=== PATIENT | female | born 1985 | race Caucasian/White ===

== ENCOUNTER 2016-10-22 07:53 | Emergency (ER) | payer OTHER ==
[~2016-10-22] VITALS: Ht 157.5 cm; Wt 146.5 kg
[~2016-10-22 07:53] MED LIST: PROP20TA3 PO
[2016-10-22 07:55] VITALS: BP 157/94; PULSE 108; RESP 20; TEMP 98.2; O2SAT 96
[2016-10-22 09:17] LABS: AUTOMATED NEUTROPHIL # 5.8 TH/MM3 (1.8-7.7); BASOPHIL % 0.2 % (0.0-2.0); EOSINOPHIL # 0.1 TH/MM3 (0-0.4); EOSINOPHIL % 0.8 % (0.0-4.0); HEMATOCRIT 41.6 % (35.0-46.0); HEMO FLAGS DIFF FINAL; LYMPH % 26.2 % (9.0-44.0); LYMPHOCYTE # 2.4 TH/MM3 (1.0-4.8); MEAN CELL VOLUME 84.7 FL (80.0-100.0); MEAN CORPUSCULAR HEMOGLOBIN 29.7 PG (27.0-34.0); MEAN CORPUSCULAR HGB CONC 35.1 % (32.0-36.0); MONO % 8.7 % (0.0-8.0); NEUT % 64.1 % (16.0-70.0); PLATELET COUNT 257 TH/MM3 (150-450); RED BLOOD COUNT 4.91 MIL/MM3 (4.00-5.30)
[2016-10-22 10:01] VITALS: RESP 16; O2SAT 97
[2016-10-22] MEDS ORDERED: PROP20TA3 PO (10:05)
[2016-10-22] MEDS ORDERED: SODIUM CHLOR 0.9% 1000 ML INJ 1,000 ML IV ONE (10:22)
[2016-10-22] MEDS ORDERED: MORPHINE SULFATE 4 MG/ML INJ IV PUSH ONE (10:30)
[2016-10-22 10:50] LABS: BACTERIA, URINE OCC /hpf; BLOOD, URINE NEG (NEG); GLUCOSE,URINE NEG (NEG); KETONE, URINE NEG (NEG); NITRITE,URINE NEG (NEG); PH, URINE 5.5 (5.0-8.5); SQUAMOUS EPITHELIAL CELL URINE 1 /hpf (0-5); URINE COLOR LIGHT-YELLOW (YELLW/STRAW)
[2016-10-22 10:51] LABS: COMMENT (UR) CULT NOT INDICATED; CULTURE IF INDICATED CULT NOT INDICATED
[2016-10-22] MEDS ORDERED: oxyCODONE/ACETAMINOPHEN 5 MG/325 MG TAB PO ONE (11:00)
[2016-10-22 11:32] LABS: BICARBONATE 26.8 MEQ/L (21.0-32.0); POTASSIUM 4.4 MEQ/L (3.5-5.1)
--- NOTE | 2016-10-22 12:07 | RADRPT ---
EXAM DATE/TIME: 10/22/2016 10:55 [place] COMPARISON: No previous studies available for comparison. INDICATIONS : Pelvic pain. MEDICAL HISTORY : Pelvic pain. Mitral valve prolapse. Ovarian cysts. SURGICAL HISTORY : Tonsillectomy. ENCOUNTER: Initial ACUITY: 2 days PAIN SCORE: 4/10 LOCATION: Right pelvis MEASUREMENTS: UTERUS: 8.0 x 2.4 x 4.4 cm RIGHT OVARY: 3.1 x 2.5 x 4.2 cm ENDOMETRIAL STRIPE: 9 mm LEFT OVARY: Not visualized. FINDINGS: UTERUS: The myometrium has homogeneous echotexture without mass. RIGHT OVARY: A simple cyst is seen involving the right ovary. This measures 5.5 x 4.1 x 3.8 cm. No hyperemia. No s eptations or internal echoes. No yolk sac or pole. LEFT OVARY: The ovary is not visualized. No adnexal mass or fluid collection is seen. MISCELLANEOUS: No free fluid. CONCLUSION: 1. Lack of visualization of the left ovary. 2. 5.5 cm simple cyst involving the right ovary. Vance Paredes Jr., MD on October 22, 2016 at 12:02 Board Certified Radiologist. This report was verified electronically.
[2016-10-22 12:30] VITALS: RESP 16
[2016-10-22] MEDS ORDERED: IBUPROFEN 600 MG TAB PO ONE (15:00)
[2016-10-22] MEDS ORDERED: IBUP-232 PO (15:14)
--- NOTE | 2016-10-22 15:14 | PD ---
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 Patient reports that she was has pain to her lower abdomen when she is ovulating, reports that the pain usually lasts for a few hours and resolves on its own. Patient reports that she has had increased pain to her right lower quadrant since yesterday morning, reports pain is been constant and unrelenting. Patient reports history of ovarian cysts in the past. Patient reports that she has been feeling nauseous and did have an episode of emesis. Patient with no fevers or chills. Patient denies constipation or diarrhea with last bowel movement this morning. Patient denies any vaginal bleeding or discharge. PFSH Past Medical History Heart Rhythm Problems: Yes (SINUS TACH) Cardiovascular Problems: Yes (MVP) ?: Not LMP: 10/04/2016 Ovarian Cysts: Yes Past Surgical History Tonsillectomy: Yes (T&A) Social History Alcohol Use: No Tobacco Use: No Substance Use: No Allergies-Medications (Allergen,Severity, Reaction): Coded Allergies: No Known Allergies (Unverified , 10/22/16) Reported Meds & Prescriptions Reported Meds & Active Scripts Active Ibuprofen 600 Mg Tab 600 Mg PO Q6H PRN Reported Propranolol (Propranolol HCl) 20 Mg Tab 20 Mg PO TID Review of Systems General / Constitutional: No: Fever Eyes: No: Visual changes HENT: No: Headaches Cardiovascular: No: Chest Pain or Discomfort Respiratory: No: Shortness of Breath Gastrointestinal: Positive: Nausea, Vomiting, Abdominal Pain Genitourinary: Positive: Pelvic Pain, No: Urgency, Frequency, Dysuria, Hesitancy, Flank Pain, Vaginal Bleeding Musculoskeletal: No: Pain Skin: No Rash Neurologic: No: Weakness Psychiatric: No: Depression Endocrine: No: Polydipsia Hematologic/Lymphatic: No: Easy Bruising Physical Exam Narrative GENERAL: nad, nontoxic SKIN: Warm and dry. HEAD: Atraumatic. Normocephalic. EYES: Pupils equal and round. No scleral icterus. No injection or drainage. ENT: No nasal bleeding or discharge. Mucous membranes pink and moist. NECK: Trachea midline. No JVD. CARDIOVASCULAR: Regular rate and rhythm. No murmur appreciated. RESPIRATORY: No accessory muscle use. Clear to auscultation. Breath sounds equal bilaterally. GASTROINTESTINAL: Abdomen soft, non-tender, nondistended. Patient with mild right-sided pelvic pain with no rebound or guarding on exam MUSCULOSKELETAL: No obvious deformities. No clubbing. No cyanosis. No edema. NEUROLOGICAL: Awake and alert. No obvious cranial nerve deficits. Motor grossly within normal limits. Normal speech. PSYCHIATRIC: Appropriate mood and affect; insight and judgment normal. Data Data Last Documented VS Vital Signs Date Time Temp Pulse Resp B/P Pulse Ox O2 Delivery O2 Flow Rate FiO2 10/22/16 12:30 16 10/22/16 10:01 97 Room Air 10/22/16 10:01 90 10/22/16 07:55 98.2 157/94 Orders Complete Blood Count With Diff (10/22/16 08:33) Iv Access Insert/Monitor (10/22/16 08:33) Oxygen Administration (10/22/16 08:33) Oximetry (10/22/16 08:33) Ed Urine Pregnancytest Poc (10/22/16 08:33) Urinalysis - C+S If Indicated (10/22/16 10:17) Basic Metabolic Panel (Bmp) (10/22/16 10:22) Sodium Chlor 0.9% 1000 Ml Inj (Ns 1000 M (10/22/16 10:22) Morphine Inj (Morphine Inj) (10/22/16 10:30) Oxycodone-Acetamin 5-325 Mg (Percocet (10/22/16 11:00) Us Pelvis Comp W Dop Transvag (10/22/16 ) Ibuprofen (Motrin) (10/22/16 15:00) Labs Laboratory Tests Test 10/22/16 10/22/16 10/22/16 08:57 10:29 10:52 White Blood Count 9.0 TH/MM3 Red Blood Count 4.91 MIL/MM3 Hemoglobin 14.6 GM/DL Hematocrit 41.6 % Mean Corpuscular Volume 84.7 FL Mean Corpuscular Hemoglobin 29.7 PG Mean Corpuscular Hemoglobin 35.1 % Concent Red Cell Distribution Width 13.0 % Platelet Count 257 TH/MM3 Mean Platelet Volume 7.8 FL Neutrophils (%) (Auto) 64.1 % Lymphocytes (%) (Auto) 26.2 % Monocytes (%) (Auto) 8.7 % Eosinophils (%) (Auto) 0.8 % Basophils (%) (Auto) 0.2 % Neutrophils # (Auto) 5.8 TH/MM3 Lymphocytes # (Auto) 2.4 TH/MM3 Monocytes # (Auto) 0.8 TH/MM3 Eosinophils # (Auto) 0.1 TH/MM3 Basophils # (Auto) 0.0 TH/MM3 CBC Comment DIFF FINAL Differential Comment Urine Color LIGHT-YELLOW Urine Turbidity CLEAR Urine pH 5.5 Urine Specific [place] 1.008 Urine Protein NEG mg/dL Urine Glucose (UA) NEG mg/dL Urine Ketones NEG mg/dL Urine Occult Blood NEG Urine Nitrite NEG Urine Bilirubin NEG Urine Urobilinogen LESS THAN 2.0 MG/DL Urine Leukocyte Esterase NEG Urine RBC 1 /hpf Urine WBC LESS THAN 1 /hpf Urine Squamous Epithelial 1 /hpf Cells Urine Amorphous Sediment RARE Urine Bacteria OCC /hpf Microscopic Urinalysis Comment CULT NOT INDICATED Sodium Level 137 MEQ/L Potassium Level 4.4 MEQ/L Chloride Level 104 MEQ/L Carbon Dioxide Level 26.8 MEQ/L Anion Gap 6 MEQ/L Blood Urea Nitrogen 8 MG/DL Creatinine 0.96 MG/DL Estimat Glomerular Filtration 69 ML/MIN Rate Random Glucose 93 MG/DL Calcium Level 9.2 MG/DL [facility] Medical Decision Making Medical Screen Exam Complete: Yes Emergency Medical Condition: Yes Interpretation(s) Vital Signs Date Time Temp Pulse Resp B/P Pulse Ox O2 Delivery O2 Flow Rate FiO2 10/22/16 12:30 16 10/22/16 10:01 16 97 Room Air 10/22/16 10:01 90 16 10/22/16 10:01 97 Room Air 10/22/16 07:55 98.2 108 20 157/94 96 Room Air CBC & BMP Diagram 10/22/16 08:57 10/22/16 10:52 Last Impressions Abdomen/Pelvis/Transvag US 10/22/16 0000 Signed Impressions: Service Date/Time: Saturday, October 22, 2016 10:55 - CONCLUSION: 1. Lack of visualization of the left ovary. 2. 5.5 cm simple cyst involving the right ovary. Vance Paredes Jr., MD Differential Diagnosis Ovarian cysts, ovarian torsion, cervicitis, UTI, appendicitis Narrative Course Patient is a 30-year-old female who presents to emergency room with complaints of right lower quadrant pelvic pain since yesterday morning. Patient reports that she has pain to her pelvis every time she ovulates, reports that pain has been persistent since yesterday. Patient with no vaginal discharge or bleeding at this time. Patient does have history of ovarian cysts in the past. She here for further evaluation of her symptoms. cbc: wnl bmp: wnl ua: Negative leuk esterase, negative nitrite, occasional bacteria Pelvic ultrasound: Last Impressions Abdomen/Pelvis/Transvag US 10/22/16 0000 Signed Impressions: Service Date/Time: Saturday, October 22, 2016 10:55 - CONCLUSION: 1. Lack of visualization of the left ovary. 2. 5.5 cm simple cyst involving the right ovary. Vance Paredes Jr., MD Patient reevaluated, patient reports that she is feeling much better. Abdomen is soft, nontender, nondistended, no peritoneal signs. Signs and symptoms of when to return to the emergency room was reviewed with patient in detail. 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 Diagnosis Primary Impression: Ovarian cyst Qualified Code: N83.201 - Cyst of right ovary Referrals: Emili Dumont MD Patient Instructions: Narcotic given in the ED, General Instructions Departure Forms: Tests/Procedures, Work Release Enter return to work date: Oct 25, 2016 Med/Other Pt SpecificInfo: Prescription(s) given Scripts Ibuprofen 600 Mg [id number] Mg PO Q6H PRN (Pain/Inflammation) #30 TAB Ref 0 Prov:Barbara Alcaraz DO 10/22/16 Disposition: 01 DISCHARGE HOME Condition: Stable Barbara Alcaraz DO Oct 22, 2016 15:14
== END 2016-10-22 15:46 | disposition home or self-care (01) ==
LOC: NEPE 07:53
DX: N83.201 Unspecified ovarian cyst, right side (principal); R11.2 Nausea with vomiting, unspecified; R10.2 Pelvic and perineal pain; I34.1 Nonrheumatic mitral (valve) prolapse
CPT/HCPCS: 76830; 76856; 80048; 81001; 84703; 85025; 93975